=== PATIENT | male | born 1950 | race Caucasian/White ===

== ENCOUNTER 2019-04-21 13:10 | Inpatient (IN) | payer MEDICARE, BC ==
[~2019-04-21] VITALS: Ht 170.2 cm; Wt 73.7 kg
[2019-04-21 14:18] LABS: Source, Urine Voided
[2019-04-21 14:31] LABS: BASOPHILS ABSOLUTE AUTO 0.07 K/mm3 (0.00-0.23); BASOPHILS PERCENT AUTO 1 % (0-2); EOSINOPHILS ABSOLUTE AUTO 0.07 K/mm3 (0.00-0.68); EOSINOPHILS PERCENT AUTO 1 % (0-6); Hematocrit 40.9 % (37.0-53.0); Hemoglobin 15.2 g/dL (13.5-17.5); IMMATURE GRAN ABSOLUTE AUTO 0.08 K/mm3 (0.00-0.10); IMMATURE GRAN PERCENT AUTO 1 % (0-1); LYMPHOCYTES PERCENT AUTO 21 % (21-46); MONOCYTES ABSOLUTE AUTO 1.38 K/mm3 (0.16-1.47); MONOCYTES PERCENT AUTO 11 % (4-13); Mean Corpuscular HGB 35.6 pg (26.0-34.0); Mean Corpuscular HGB Conc 37.2 g/dL (31.5-36.5); Mean Corpuscular Volume 96 fL (80-100); Mean Platelet Volume 9.1 fL (9.1-12.4); NEUTROPHILS ABSOLUTE AUTO 8.69 K/mm3 (1.96-9.15); NEUTROPHILS PERCENT AUTO 67 % (41-73); Platelet Count 284 K/mm3 (150-400); RDW Coefficient Variation 12.4 % (11.7-14.2); RDW Standard Deviation 43.7 fL (35.1-46.3); Red Blood Cell Count 4.27 M/mm3 (4.30-5.90); White Blood Cell Count 13.09 K/mm3 (4.00-11.30)
[2019-04-21 14:49] LABS: Alanine Aminotransfer (ALT/SGP 63 U/L (12-78); Albumin, Blood 4.1 g/dL (3.4-5.0); Albumin/Globulin Ratio 1.2 (0.8-1.8); Alk Phos 48 U/L (50-136); Anion Gap 9 mmol/L (6-16); Aspartate Aminotrans (AST/SGOT 197 U/L (12-37); Bilirubin, Total 1.2 mg/dL (0.1-1.0); Blood Urea Nitrogen 13 mg/dL (8-24); Bun/Creatinine Ratio 13.8 (12.0-20.0); CO2, Blood 27 mmol/L (21-32); Calcium, Blood 8.7 mg/dL (8.5-10.1); Chloride, Blood 85 mmol/L (98-108); Creatinine, Blood 0.95 mg/dL (0.60-1.20); Globulin, Blood 3.3 g/dL (2.2-4.0); Glomerular Filtration Rate >60 (60-); Glucose, Blood 84 mg/dL (70-99); Potassium, Blood 3.4 mmol/L (3.5-5.5); Sodium, Blood 121 mmol/L (136-145); Total Protein, Blood 7.4 g/dL (6.4-8.2)
[2019-04-21 15:02] LABS: Appearance, Urine Clear (Clear); Bilirubin, Urine Neg (Neg); Blood, Urine 1+ (Neg); Color, Urine Yellow (P-Yellow); Glucose Qualitative, Urine Neg (Neg); Ketones, Urine 1+ (Neg); Leukocyte Esterase, Urine Neg (Neg); Nitrite, Urine Neg (Neg); Protein, Urine 2+ (Neg); Urobilinogen, Urine 1+ (Normal)
[2019-04-21] MEDS ORDERED: Vitamin B-Comp1 EAC7 PO (15:50)
[2019-04-21 15:54] LABS: Bacteria Few /hpf; Squamous Epithelial Cells Few /hpf (Few)
--- NOTE | 2019-04-21 19:24 | NUR ---
new admit patient settled into room. denies pain, nausea, and shortness of breath. patient eating dinner. call light in reach.
[2019-04-21 22:16] LABS: Albumin, Blood 3.6 g/dL (3.4-5.0); Anion Gap 8 mmol/L (6-16); Blood Urea Nitrogen 15 mg/dL (8-24); Bun/Creatinine Ratio 15.5 (12.0-20.0); CO2, Blood 25 mmol/L (21-32); Calcium, Blood 8.5 mg/dL (8.5-10.1); Chloride, Blood 89 mmol/L (98-108); Creatinine, Blood 0.97 mg/dL (0.60-1.20); Glomerular Filtration Rate >60 (60-); Glucose, Blood 93 mg/dL (70-99); Phosphorus, Blood 2.6 mg/dL (2.5-4.9); Potassium, Blood 3.5 mmol/L (3.5-5.5); Sodium, Blood 122 mmol/L (136-145)
--- NOTE | 2019-04-22 04:32 | NUR ---
PT IS RETAINING URINE. PT REQUIRES COUDET FOR CATH. PT HAD 500 ML INTO URINAL AND UNKNOW AMOUNT LEAKED. PT ABD WAS DISTENDED PRIOR TO CATH AND NOW IS SOFT NONTENDER.
[2019-04-22 05:01] LABS: BASOPHILS ABSOLUTE AUTO 0.06 K/mm3 (0.00-0.23); BASOPHILS PERCENT AUTO 1 % (0-2); EOSINOPHILS ABSOLUTE AUTO 0.09 K/mm3 (0.00-0.68); EOSINOPHILS PERCENT AUTO 1 % (0-6); Hemoglobin 15.4 g/dL (13.5-17.5); IMMATURE GRAN ABSOLUTE AUTO 0.06 K/mm3 (0.00-0.10); IMMATURE GRAN PERCENT AUTO 1 % (0-1); LYMPHOCYTES ABSOLUTE AUTO 2.26 K/mm3 (0.84-5.20); LYMPHOCYTES PERCENT AUTO 22 % (21-46); MONOCYTES ABSOLUTE AUTO 1.24 K/mm3 (0.16-1.47); MONOCYTES PERCENT AUTO 12 % (4-13); Mean Corpuscular HGB 35.6 pg (26.0-34.0); Mean Platelet Volume 9.6 fL (9.1-12.4); NEUTROPHILS ABSOLUTE AUTO 6.45 K/mm3 (1.96-9.15); NEUTROPHILS PERCENT AUTO 64 % (41-73); Platelet Count 207 K/mm3 (150-400); RDW Coefficient Variation 12.1 % (11.7-14.2); RDW Standard Deviation 42.5 fL (35.1-46.3); Red Blood Cell Count 4.32 M/mm3 (4.30-5.90); White Blood Cell Count 10.16 K/mm3 (4.00-11.30)
--- NOTE | 2019-04-22 05:10 | NUR ---
SHIFT SUMMARY PT HAD GOOD NIGHT. PT RETAINING URINE WITH ABD DISCOMFORT. PT STRIGHT CATH AND DISCOMFORT RELIEVED. PT CONFUSION HAS IMPROVED SOME. PT DID HAVE SHORT PERIOD OF HALLUCINATIONS. PT THOUGHT A STRANGER CAME INTO HIS ROOM. PT IS CURRENTLY AWAKE WATCHING TV. PT WOULD BENEFIT FROM NYSTATIN POWDER TO [place] [facility]. WILL PASS ON TO DAY RN. PT IS UNSTEADY ON FEET AND BED ALARM IS ON AND CALL LIGHT IN REACH.
[2019-04-22 05:16] LABS: Mean Corpuscular HGB Conc 35.8 g/dL (31.5-36.5); Mean Corpuscular Volume 100 fL (80-100)
[2019-04-22 05:25] LABS: Albumin, Blood 3.6 g/dL (3.4-5.0); Anion Gap 11 mmol/L (6-16); Blood Urea Nitrogen 13 mg/dL (8-24); CO2, Blood 22 mmol/L (21-32); Calcium, Blood 8.2 mg/dL (8.5-10.1); Chloride, Blood 90 mmol/L (98-108); Creatinine, Blood 0.87 mg/dL (0.60-1.20); Glomerular Filtration Rate >60 (60-); Glucose, Blood 79 mg/dL (70-99); Phosphorus, Blood 2.7 mg/dL (2.5-4.9); Sodium, Blood 123 mmol/L (136-145)
--- NOTE | 2019-04-22 06:03 | NUR ---
nurses straight cathed pt at approxiately 3am to 3:30am. Bladder scan showed 582ML of urine. I charted output because it hadnt been put in by anyone else. However, i didnt witness the cathing.
[2019-04-22 12:57] LABS: Anion Gap 9 mmol/L (6-16); Blood Urea Nitrogen 13 mg/dL (8-24); Bun/Creatinine Ratio 15.1 (12.0-20.0); CO2, Blood 24 mmol/L (21-32); Calcium, Blood 8.3 mg/dL (8.5-10.1); Chloride, Blood 92 mmol/L (98-108); Creatinine, Blood 0.86 mg/dL (0.60-1.20); Glomerular Filtration Rate >60 (60-); Glucose, Blood 75 mg/dL (70-99); Osmolality, Serum 255 mos/KG (275-300); Potassium, Blood 3.5 mmol/L (3.5-5.5); Sodium, Blood 125 mmol/L (136-145)
[2019-04-22 13:22] LABS: CPK Creatine Kinase 2291 U/L (39-308)
--- NOTE | 2019-04-22 15:51 | NUR ---
STRAIGHT CATH THIS RN STRAIGHT CATHED PT WITH 14 COUDET. DRAINED 525 ML FROM BLADDER. PT DID START TO VOID WHILE CATHETER IN PLACE, CAUSING TO LOSE SOME URINE ON BED SO UNABLE TO MEASURE ALL URINE OUTPUT. PT HAD TRIED FOR SEVERAL MINUTES TO VOID ON OWN BEFORE DOING STRAIGHT CATH. PT TOLERATED WELL. NO REQUESTS AT THIS TIME. CALL LIGHT IN REACH AND BED ALARM ON FOR SAFETY.
--- NOTE | 2019-04-22 17:56 | NUR ---
SHIFT SUMMARY PT CONFUSED BUT COOPERATIVE WITH CARE THIS SHIFT. NO COMPLAINTS OF PAIN. PT HAS HAD RETENTION ON AND OFF THIS THIS SHIFT. PT VOIDED THIS AM BUT WAS UNABLE TO VOID THIS AFTERNOON. THIS RN STRAIGHT CATHED PT AND 525 ML REMOVED FROM BLADDER. NO ACUTE CHANGES THIS SHIFT. CALL LIGHT IN REACH AND BED ALARM ON FOR SAFETY.
[2019-04-23 04:35] LABS: BASOPHILS ABSOLUTE AUTO 0.05 K/mm3 (0.00-0.23); BASOPHILS PERCENT AUTO 0 % (0-2); EOSINOPHILS ABSOLUTE AUTO 0.06 K/mm3 (0.00-0.68); EOSINOPHILS PERCENT AUTO 1 % (0-6); Hematocrit 41.2 % (37.0-53.0); Hemoglobin 15.4 g/dL (13.5-17.5); IMMATURE GRAN ABSOLUTE AUTO 0.04 K/mm3 (0.00-0.10); IMMATURE GRAN PERCENT AUTO 0 % (0-1); LYMPHOCYTES ABSOLUTE AUTO 2.47 K/mm3 (0.84-5.20); LYMPHOCYTES PERCENT AUTO 21 % (21-46); MONOCYTES ABSOLUTE AUTO 1.35 K/mm3 (0.16-1.47); MONOCYTES PERCENT AUTO 11 % (4-13); Mean Corpuscular HGB Conc 37.4 g/dL (31.5-36.5); Mean Platelet Volume 8.9 fL (9.1-12.4); NEUTROPHILS ABSOLUTE AUTO 7.89 K/mm3 (1.96-9.15); NEUTROPHILS PERCENT AUTO 67 % (41-73); Platelet Count 304 K/mm3 (150-400); RDW Coefficient Variation 12.2 % (11.7-14.2); RDW Standard Deviation 42.6 fL (35.1-46.3); White Blood Cell Count 11.86 K/mm3 (4.00-11.30)
[2019-04-23 04:37] LABS: Mean Corpuscular Volume 94 fL (80-100)
[2019-04-23 04:57] LABS: Albumin, Blood 3.7 g/dL (3.4-5.0); Anion Gap 9 mmol/L (6-16); Blood Urea Nitrogen 8 mg/dL (8-24); Bun/Creatinine Ratio 10.2 (12.0-20.0); CO2, Blood 23 mmol/L (21-32); Calcium, Blood 8.2 mg/dL (8.5-10.1); Chloride, Blood 93 mmol/L (98-108); Creatinine, Blood 0.78 mg/dL (0.60-1.20); Glomerular Filtration Rate >60 (60-); Glucose, Blood 101 mg/dL (70-99); Potassium, Blood 3.2 mmol/L (3.5-5.5); Sodium, Blood 125 mmol/L (136-145)
[2019-04-23 05:06] LABS: CPK Creatine Kinase 2328 U/L (39-308)
--- NOTE | 2019-04-23 05:11 | NUR ---
SHIFT SUMMARY: PATIENT CONFUSED UP UNTIL APPROX 0400 THIS SHIFT. PATIENT NOW ALERT AND ORIENTED WITH MILD FORGETFULLNESS, CIWA WAS UP TO AN 11 AT APPROX 0000 BUT HARD TO TELL WITH PATIENTS UNDERLYING CONFUSION. HYDRALAZINE GIVEN X1 FOR SBP OF 160, ALL OTHER VSS, PATIENT MONITORED CLOSELY, URINATING WELL, CALL LIGHT WITHIN REACH, BED LOW AND LOCKED WITH EXIT ALARM ON.
[2019-04-23 13:10] LABS: Albumin, Blood 3.7 g/dL (3.4-5.0); Anion Gap 8 mmol/L (6-16); Blood Urea Nitrogen 7 mg/dL (8-24); Bun/Creatinine Ratio 9.2 (12.0-20.0); CO2, Blood 25 mmol/L (21-32); Calcium, Blood 8.2 mg/dL (8.5-10.1); Chloride, Blood 92 mmol/L (98-108); Creatinine, Blood 0.76 mg/dL (0.60-1.20); Glomerular Filtration Rate >60 (60-); Glucose, Blood 142 mg/dL (70-99); Phosphorus, Blood 1.8 mg/dL (2.5-4.9); Potassium, Blood 3.1 mmol/L (3.5-5.5); Sodium, Blood 125 mmol/L (136-145)
--- NOTE | 2019-04-23 13:38 | NUR ---
IV TO LEFT AC AND RIGHT AC IN PLACE WHEN RN CAME ON TO SHIFT. NO DOCUMENTATION OF IV IN CHART. RN DOCUMENTED IV PLACEMENT, WITH AN ESTIMATE OF DATE AND TIME. RN DID NOT PLACE THIS IV.
[2019-04-23 16:17] LABS: Albumin, Blood 3.8 g/dL (3.4-5.0); Anion Gap 9 mmol/L (6-16); Blood Urea Nitrogen 8 mg/dL (8-24); Bun/Creatinine Ratio 9.8 (12.0-20.0); CO2, Blood 24 mmol/L (21-32); Calcium, Blood 8.7 mg/dL (8.5-10.1); Chloride, Blood 92 mmol/L (98-108); Creatinine, Blood 0.82 mg/dL (0.60-1.20); Glomerular Filtration Rate >60 (60-); Glucose, Blood 82 mg/dL (70-99); Magnesium, Blood 1.8 mg/dL (1.6-2.4); Phosphorus, Blood 2.1 mg/dL (2.5-4.9); Potassium, Blood 3.3 mmol/L (3.5-5.5); Sodium, Blood 125 mmol/L (136-145); Uric Acid, Blood 3.8 mg/dL (3.5-7.2)
--- NOTE | 2019-04-24 04:47 | NUR ---
SPOKE TO DR JORGENSEN REGARDING PATIENT PULLING HIS LINES AN TRYING TO GET UP TO LEAVE. RECEIVED ORDERS PER EMAR.
[2019-04-24 05:05] LABS: BASOPHILS ABSOLUTE AUTO 0.03 K/mm3 (0.00-0.23); BASOPHILS PERCENT AUTO 0 % (0-2); EOSINOPHILS ABSOLUTE AUTO 0.09 K/mm3 (0.00-0.68); EOSINOPHILS PERCENT AUTO 1 % (0-6); Hemoglobin 14.1 g/dL (13.5-17.5); IMMATURE GRAN ABSOLUTE AUTO 0.03 K/mm3 (0.00-0.10); IMMATURE GRAN PERCENT AUTO 0 % (0-1); LYMPHOCYTES ABSOLUTE AUTO 2.42 K/mm3 (0.84-5.20); LYMPHOCYTES PERCENT AUTO 23 % (21-46); MONOCYTES ABSOLUTE AUTO 1.11 K/mm3 (0.16-1.47); MONOCYTES PERCENT AUTO 11 % (4-13); Mean Corpuscular HGB 34.7 pg (26.0-34.0); Mean Corpuscular HGB Conc 36.2 g/dL (31.5-36.5); Mean Corpuscular Volume 96 fL (80-100); Mean Platelet Volume 9.2 fL (9.1-12.4); NEUTROPHILS ABSOLUTE AUTO 6.88 K/mm3 (1.96-9.15); NEUTROPHILS PERCENT AUTO 65 % (41-73); Platelet Count 321 K/mm3 (150-400); RDW Coefficient Variation 12.2 % (11.7-14.2); RDW Standard Deviation 43.5 fL (35.1-46.3); Red Blood Cell Count 4.06 M/mm3 (4.30-5.90); White Blood Cell Count 10.56 K/mm3 (4.00-11.30)
[2019-04-24 06:05] LABS: Albumin, Blood 3.6 g/dL (3.4-5.0); Anion Gap 10 mmol/L (6-16); Blood Urea Nitrogen 8 mg/dL (8-24); Bun/Creatinine Ratio 9.7 (12.0-20.0); CO2, Blood 23 mmol/L (21-32); Calcium, Blood 8.1 mg/dL (8.5-10.1); Chloride, Blood 94 mmol/L (98-108); Creatinine, Blood 0.83 mg/dL (0.60-1.20); Glomerular Filtration Rate >60 (60-); Glucose, Blood 92 mg/dL (70-99); Magnesium, Blood 1.5 mg/dL (1.6-2.4); Phosphorus, Blood 2.1 mg/dL (2.5-4.9); Potassium, Blood 3.5 mmol/L (3.5-5.5); Sodium, Blood 127 mmol/L (136-145)
[2019-04-24 06:21] LABS: CPK Creatine Kinase 2747 U/L (39-308)
[2019-04-24 10:54] LABS: Triiodothyronine, Free <0.50 pg/mL (2.18-3.98)
--- NOTE | 2019-04-24 17:47 | NUR ---
SHIFT SUMMARY PT A&Ox1, CONFUSED AT TIMES, SLOW TO RESPOND. PT UNABLE TO TELL THE DATE, STATES ITS 2008, PT STATES HE DOESNT REMEMBER WHY HE IS HERE. PT RESTING IN BED DURING SHIFT. UP IN CHAIR WITH 2 PERSON ASSIST FOR DINNER. PT WALKED IN HALLS WITH PT THIS AM. PT DENIES PAIN, SOB AND N/V. PT REFUSING MEALS. IV FLUIDS NS AT 100ML/HR. PT RECEIVING IV MAG SULFATE AND SODIUM PHOS IV; PT RECEIVING PO LASIX AND SODIUM CHLORIDE AND STARTED ON SYNTHROIDS DURING SHIFT. CIWA 3-7, WILL CONTINUE TO MONITOR. AT START OF SHIFT PT IN DEEPTHI AND BILATERAL WRIST RESTARINTS; DISCUSSED RESTRAINTS WITH DR CULVER THIS AFTERNOON, NOW ONLY IN BILATERAL WRISTS. PT REPOSITIONED FOR COMFORT. VSS. NO OTHER ACUTE CHANGES NOTED DURING SHIFT. WILL CONTINUE TO MONITOR UNTIL REPORT GIVEN TO ONCOMING RN.
--- NOTE | 2019-04-24 18:12 | NUR ---
PATIENT'S DAUGHTER AND SON MENTIONED THAT THE PATIENT HAD STOPPED TAKE HIS HOME MEDICATIONS "A MONTH OR SO AGO". CALLED [facility], THE LAST PRESCRIPTION FILLED WAS IN MARCH/2018 AND HIS PREVIOUS PRESCRIPTIONS INCLUDED; SYNTHROID 112MCG PO DAILY ATORVASTATIN 10MG PO DAILY AMLODIPINE 5 MG PO DAILY ATENOLOL 25 MG PO
[2019-04-25 05:42] LABS: BASOPHILS ABSOLUTE AUTO 0.06 K/mm3 (0.00-0.23); BASOPHILS PERCENT AUTO 1 % (0-2); EOSINOPHILS ABSOLUTE AUTO 0.15 K/mm3 (0.00-0.68); EOSINOPHILS PERCENT AUTO 1 % (0-6); Hematocrit 35.6 % (37.0-53.0); Hemoglobin 12.7 g/dL (13.5-17.5); IMMATURE GRAN ABSOLUTE AUTO 0.03 K/mm3 (0.00-0.10); IMMATURE GRAN PERCENT AUTO 0 % (0-1); LYMPHOCYTES ABSOLUTE AUTO 2.68 K/mm3 (0.84-5.20); LYMPHOCYTES PERCENT AUTO 24 % (21-46); MONOCYTES ABSOLUTE AUTO 0.91 K/mm3 (0.16-1.47); MONOCYTES PERCENT AUTO 8 % (4-13); Mean Corpuscular HGB Conc 35.7 g/dL (31.5-36.5); Mean Corpuscular Volume 98 fL (80-100); Mean Platelet Volume 9.3 fL (9.1-12.4); NEUTROPHILS ABSOLUTE AUTO 7.59 K/mm3 (1.96-9.15); NEUTROPHILS PERCENT AUTO 66 % (41-73); Platelet Count 297 K/mm3 (150-400); RDW Coefficient Variation 12.4 % (11.7-14.2); RDW Standard Deviation 45.1 fL (35.1-46.3); Red Blood Cell Count 3.63 M/mm3 (4.30-5.90); White Blood Cell Count 11.42 K/mm3 (4.00-11.30)
[2019-04-25 06:11] LABS: Magnesium, Blood 1.8 mg/dL (1.6-2.4)
[2019-04-25 06:13] LABS: Albumin, Blood 3.2 g/dL (3.4-5.0); Anion Gap 9 mmol/L (6-16); Blood Urea Nitrogen 10 mg/dL (8-24); Bun/Creatinine Ratio 10.8 (12.0-20.0); CO2, Blood 25 mmol/L (21-32); Calcium, Blood 7.8 mg/dL (8.5-10.1); Chloride, Blood 93 mmol/L (98-108); Creatinine, Blood 0.93 mg/dL (0.60-1.20); Glomerular Filtration Rate >60 (60-); Glucose, Blood 77 mg/dL (70-99); Phosphorus, Blood 2.8 mg/dL (2.5-4.9); Potassium, Blood 3.1 mmol/L (3.5-5.5); Sodium, Blood 127 mmol/L (136-145)
--- NOTE | 2019-04-25 07:30 | NUR ---
SHIFT SUMMARY: PATIENT WAS VERY CONFUSED THIS SHIFT, HIS SPEECH GARBLED AND NONSENICAL; HE WAS HALLUCINATING. CIWA SCORE WAS 14 AND PATIENT RECEIVED 2 MG OF ATIVAN. HE QUIETED, AND RESTED PEACEFULLY AFTER THIS. SPOKE TO DR CARBAJAL THIS AM AND RECEIVED NEW ORDERS PER EMAR. PATIENT REMAINS IN SOFT-WRIST RESTRAINTS. PASSED REPORT TO DAY NURSE LONG.
[2019-04-25 13:34] LABS: Potassium, Blood 3.5 mmol/L (3.5-5.5)
--- NOTE | 2019-04-25 17:39 | NUR ---
SHIFT SUMMARY PT A&O TO SELF AND FAMILY, UNABLE TO STATE DATE/TIME, STATES HE IS AT HOME AND DOSE NOT KNOW WHY HE IS HERE. PT IS CONFUSED. PT REPORTS THAT OTHER "MEN" ARE IN THE ROOM. PT UP IN RECLINER FOR MAJORITY OF SHIFT, 2 PERSON MAX ASSIST TRANSFER TO BED. PT DENIES PAIN, SOB AND N/V DURING SHIFT. PT FAMILY STATES HE IS NOT A 'BIG EATER" ENCOURAGING PO INTAKE. PT RECEIVED IV POTASSIUM AND PO POTASSIUM AND INCREASED SODIUM CLHORIDE. PT RECEIVED PO LASIX AND ALDACTONE. CIWA 7-9 T/O SHIFT, MEDICATED PER EMAR. BILATERL SOFT WRIST CUFFS IN PLACE. VSS. NO OTHER ACUTE CHANGES NOTED DURING SHIFT. WILL CONTINUE TO MONITOR UNTIL REPORT GIVEN TO ONCOMING RN.
[2019-04-26 04:52] LABS: BASOPHILS ABSOLUTE AUTO 0.06 K/mm3 (0.00-0.23); BASOPHILS PERCENT AUTO 1 % (0-2); EOSINOPHILS ABSOLUTE AUTO 0.11 K/mm3 (0.00-0.68); EOSINOPHILS PERCENT AUTO 1 % (0-6); Hematocrit 36.6 % (37.0-53.0); IMMATURE GRAN ABSOLUTE AUTO 0.03 K/mm3 (0.00-0.10); IMMATURE GRAN PERCENT AUTO 0 % (0-1); LYMPHOCYTES ABSOLUTE AUTO 2.75 K/mm3 (0.84-5.20); LYMPHOCYTES PERCENT AUTO 29 % (21-46); MONOCYTES ABSOLUTE AUTO 0.82 K/mm3 (0.16-1.47); MONOCYTES PERCENT AUTO 9 % (4-13); Mean Corpuscular HGB Conc 35.5 g/dL (31.5-36.5); Mean Corpuscular Volume 99 fL (80-100); Mean Platelet Volume 8.9 fL (9.1-12.4); NEUTROPHILS PERCENT AUTO 60 % (41-73); Platelet Count 341 K/mm3 (150-400); RDW Coefficient Variation 12.4 % (11.7-14.2); RDW Standard Deviation 45.2 fL (35.1-46.3); Red Blood Cell Count 3.71 M/mm3 (4.30-5.90); White Blood Cell Count 9.37 K/mm3 (4.00-11.30)
[2019-04-26 05:11] LABS: Albumin, Blood 3.5 g/dL (3.4-5.0); Anion Gap 9 mmol/L (6-16); Blood Urea Nitrogen 8 mg/dL (8-24); Bun/Creatinine Ratio 9.3 (12.0-20.0); CO2, Blood 25 mmol/L (21-32); Chloride, Blood 94 mmol/L (98-108); Creatinine, Blood 0.86 mg/dL (0.60-1.20); Glomerular Filtration Rate >60 (60-); Glucose, Blood 85 mg/dL (70-99); Phosphorus, Blood 2.3 mg/dL (2.5-4.9); Potassium, Blood 3.2 mmol/L (3.5-5.5); Sodium, Blood 128 mmol/L (136-145)
[2019-04-26 05:19] LABS: CPK Creatine Kinase 1843 U/L (39-308)
--- NOTE | 2019-04-26 17:01 | NUR ---
SNF - REHAB SPOKE WITH PT DAUGHTER, RADHA, VIA TELEPHONE, THE PT AND FAMILY HAVE DECIDED TO HAVE TO PATIENT DISCHARGED TO SNF FOR SHORT STAY REHAB, LONG THE FACILITY IS LOCAL WITH A PREFERENCE OF [facility]. DR CULVER NOTIFIED.
--- NOTE | 2019-04-26 17:24 | NUR ---
SHIFT SUMMARY PT A&O TO SELF AND FAMILY. PT STATES HE DOESNT KNOW THE DATE OR WHY HE IS HERE AND STATES HE IS AT HOME IN [place]. PT CONFUSED, AGGITATED AND REPORTS FEELING ANXIOUS THIS AFTERNOON. PT DENIES HALLUCINATIONS. CIWA MAX AT 9 THIS AFTERNOON. PT DENIES PAIN, SOB AND N/V DURING SHIFT. FAMILY BROUGHT IN FOOD TO ENCOURAGE ORAL INTAKE, PT TOOK A COUPLE BITES BUT CONTINUE TO HAVE A POOR APPETEITE. PT RECEIVING IV POTASSIUM PHOS AND POTASSIUM CHLORIDE. PT RECEIVING PO SODIUM CHLORIDE. PT HAD DARK BROWN/BLACK STOOL, DR CULVER NOTIFIED, ANGELITO SPECIMEN COLLECTED AND SENT FOR GUAIAC, PENDING RESULTS. ELEVATED BP NOTED, NO OTHER ACUTE CHANGES NOTED DURING SHIFT. WILL CONTINUE TO MONITOR UNITL REPORT GIVEN TO ONCOMING RN. PER PT DAUGHTER, PT AND FAMILY HAVE DECIDED TO DISCHARGE TO SNF, PREFERABLY [facility], ONCE STABLE.
[2019-04-27 04:44] LABS: BASOPHILS ABSOLUTE AUTO 0.05 K/mm3 (0.00-0.23); BASOPHILS PERCENT AUTO 1 % (0-2); EOSINOPHILS ABSOLUTE AUTO 0.18 K/mm3 (0.00-0.68); EOSINOPHILS PERCENT AUTO 2 % (0-6); Hematocrit 35.1 % (37.0-53.0); Hemoglobin 12.6 g/dL (13.5-17.5); IMMATURE GRAN ABSOLUTE AUTO 0.03 K/mm3 (0.00-0.10); IMMATURE GRAN PERCENT AUTO 0 % (0-1); LYMPHOCYTES ABSOLUTE AUTO 3.01 K/mm3 (0.84-5.20); LYMPHOCYTES PERCENT AUTO 31 % (21-46); MONOCYTES ABSOLUTE AUTO 0.77 K/mm3 (0.16-1.47); MONOCYTES PERCENT AUTO 8 % (4-13); Mean Corpuscular HGB 35.5 pg (26.0-34.0); Mean Corpuscular HGB Conc 35.9 g/dL (31.5-36.5); Mean Corpuscular Volume 99 fL (80-100); Mean Platelet Volume 8.9 fL (9.1-12.4); NEUTROPHILS ABSOLUTE AUTO 5.71 K/mm3 (1.96-9.15); NEUTROPHILS PERCENT AUTO 59 % (41-73); Platelet Count 340 K/mm3 (150-400); RDW Coefficient Variation 12.6 % (11.7-14.2); RDW Standard Deviation 45.7 fL (35.1-46.3); Red Blood Cell Count 3.55 M/mm3 (4.30-5.90); White Blood Cell Count 9.75 K/mm3 (4.00-11.30)
[2019-04-27 05:18] LABS: Albumin, Blood 3.6 g/dL (3.4-5.0); Anion Gap 8 mmol/L (6-16); Blood Urea Nitrogen 7 mg/dL (8-24); Bun/Creatinine Ratio 8.1 (12.0-20.0); CO2, Blood 26 mmol/L (21-32); Calcium, Blood 8.3 mg/dL (8.5-10.1); Chloride, Blood 92 mmol/L (98-108); Creatinine, Blood 0.86 mg/dL (0.60-1.20); Glomerular Filtration Rate >60 (60-); Glucose, Blood 82 mg/dL (70-99); Magnesium, Blood 1.6 mg/dL (1.6-2.4); Phosphorus, Blood 3.1 mg/dL (2.5-4.9); Potassium, Blood 3.4 mmol/L (3.5-5.5); Sodium, Blood 126 mmol/L (136-145)
[2019-04-27 13:54] LABS: Stool Occult Blood Guaiac 1 Pos (Neg)
--- NOTE | 2019-04-27 17:53 | NUR ---
PATIENT IS ALERT AND ORIENTED TO SELF AND HIS FAMILY. THIS MORNINGTHE PATIENT APPEARED MORE CONFUSED THAN USUAL TO STAFF. ONCE THE PATIENT'S FAMILY WAS AT THE BEDSIDE, IT WAS CLEAR THAT HE IS ORIENTED TO THEM. A BLADDER SCAN WAS OBTAINED THIS MORNING WHICH SHOWED OVER 900 ML OF URINE. THE PATIENT WAS FINALLY ABLE TO RELIEVE HIMSELF USING THE URINAL. THE PATIET'S SON ASSISTED WITH FEEDING HIM LUNCH. NO COMPLAINTS OF PAIN. WRIST RESTRAINTS HAVE BEEN REMOVED. PATIENT IS TOLERATING RESTRAINTS WELL AND IS NOT PULLING AT THE POWERGLIDE. WILL CONTINUE TO MONITOR.
--- NOTE | 2019-04-27 17:57 | NUR ---
PATIENT IS ALERT AD ORIENTED AND COOPERATIVE WITH CARE. PATIENT IS SOB AT REST. HE HAS SPENT ALOT OF HIS DAY TRIPODING IN BED. HIS OXYGEN SATURATIONS HAVE BEEN 94-95%. BREATHING TREATMENTS SCHEDULED. 2L O2 VIA NC. PATIENT HAS SLEPT PERIODICALLY THROUGHOUT THE DAY. WILL CONTINUE TO MONITOR.
--- NOTE | 2019-04-28 04:29 | NUR ---
NOC SHIFT SUMMARY PT IS PLEASANT AND COOPERATIVE WITH CARE THIS NIGHT. SON WAS IN THE ROOM BUT LEFT IN THE EVENING. HE WAS HELPED TO TRANSFER FROM THE CHAIR TO THE BED WHERE HE HAS SLEPT MOST OF NIGHT. HE IS A BIT CONFUSED AND NEEDS THINGS EXPLAINED SLOWELY TO HIM. CURRENTLY SLEEPING AND APPEARS IN NO ACUTE DISTRESS. WILL CONTINUE TO MONITOR.
[2019-04-28 04:47] LABS: Hematocrit 33.3 % (37.0-53.0); Hemoglobin 11.9 g/dL (13.5-17.5)
[2019-04-28 05:09] LABS: Albumin, Blood 3.6 g/dL (3.4-5.0); Anion Gap 6 mmol/L (6-16); Blood Urea Nitrogen 9 mg/dL (8-24); Bun/Creatinine Ratio 8.7 (12.0-20.0); CO2, Blood 28 mmol/L (21-32); Calcium, Blood 8.9 mg/dL (8.5-10.1); Chloride, Blood 92 mmol/L (98-108); Creatinine, Blood 1.03 mg/dL (0.60-1.20); Glomerular Filtration Rate >60 (60-); Glucose, Blood 77 mg/dL (70-99); Magnesium, Blood 1.8 mg/dL (1.6-2.4); Phosphorus, Blood 3.8 mg/dL (2.5-4.9); Potassium, Blood 3.6 mmol/L (3.5-5.5); Sodium, Blood 126 mmol/L (136-145)
[2019-04-28] MEDS ORDERED: FOLI1 PO (14:49)
[2019-04-28] MEDS ORDERED: FURO40 PO (14:49)
[2019-04-28] MEDS ORDERED: LEVSOD100 PO (14:50)
[2019-04-28] MEDS ORDERED: Nicoderm Cq1 EAC1 TOP (14:51)
[2019-04-28] MEDS ORDERED: POTCHL20ER PO (14:52)
[2019-04-28] MEDS ORDERED: SODCHL1 PO (14:52)
[2019-04-28] MEDS ORDERED: SPIR25 PO (14:53)
[2019-04-28] MEDS ORDERED: B-1100 MG PO (14:53)
--- NOTE | 2019-04-28 16:57 | NUR ---
PATIENT DISCHARGED HOME WITH HOME HEALTH. FAMILY AT THE BEDTIME AT THE TIME OF DISCHARGE. FAMILY TRANSPORTED PATIENT HOME.
--- NOTE | 2019-06-23 23:11 | NUR ---
LATE ENTRY: PER NOTE ON 04/24/19 REASON FOR WRIST RESTRAINT WAS FOLLOWS: BEHAVIOR REQUIRING WRIST RESTRAINTS: PATIENT PULLING HIS TUBES AND TRYING TO GET UP OOB AND BEING A HIGH FALL RISK PATIENT. TYPE OF RESTRAINT (NV)/ VEST AND SOFT WRISTS RESTRAINTS ALTERNATIVES TO RESTRAINTS CONSIDERED: EDUCATION, DISTRACTION, GIVING OF TASKS, REMINDING/PROMPTING PT TO STAY IN BED. SPOKE TO DR JORGENSEN PER PREVIIOUS NOTE PER EMAR.
== END 2019-04-28 16:52 | disposition home health service (06) | DRG 643 ==
LOC: ER 13:10 → MEDS 16:02
PROVIDERS: Emergency Medicine; Internal Medicine Nephrology; ADMIT Family Medicine
DX: E22.2 Syndrome of inappropriate secretion of antidiuretic hormone (principal); G92 Toxic encephalopathy; M62.82 Rhabdomyolysis; F10.239 Alcohol dependence with withdrawal, unspecified; F10.27 Alcohol dependence with alcohol-induced persisting dementia; N17.9 Acute kidney failure, unspecified; E03.9 Hypothyroidism, unspecified; F17.210 Nicotine dependence, cigarettes, uncomplicated; E87.6 Hypokalemia; E86.1 Hypovolemia; D72.829 Elevated white blood cell count, unspecified; E83.39 Other disorders of phosphorus metabolism; N18.2 Chronic kidney disease, stage 2 (mild); E83.51 Hypocalcemia; E88.09 Other disorders of plasma-protein metabolism, not elsewhere classified; D63.1 Anemia in chronic kidney disease; I12.9 Hypertensive chronic kidney disease with stage 1 through stage 4 chronic kidney disease, or unspecified chronic kidney disease
CPT/HCPCS: 36415; 51701; 71046; 80048; 80053; 80069; 81001; 82270; 82533; 82550; 83735; 83930; 84132; 84295; 84300; 84439; 84443; 84481; 84550; 85014; 85018; 85025; 93005; 93010; 93970; 97110; 97116; 97161; 97166; 97530; 97535; 99285-25; C1751; G0480; J0360; J1650; J1940; J2060; J3475; J3480; J7030; J7060

== ENCOUNTER 2019-05-03 18:09 | Inpatient (IN) | payer OTHER, MEDICARE, BC ==
[~2019-05-03] VITALS: Ht 175.3 cm; Wt 66.7 kg
[~2019-05-03 18:09] MED LIST: B-1100 MG PO; FOLI1 PO; FURO40 PO; LEVSOD100 PO; Nicoderm Cq1 EAC1 TOP; POTCHL20ER PO; SODCHL1 PO; SPIR25 PO; Vitamin B-Comp1 EAC7 PO
[2019-05-03 19:00] LABS: BASOPHILS ABSOLUTE AUTO 0.04 K/mm3 (0.00-0.23); BASOPHILS PERCENT AUTO 0 % (0-2); EOSINOPHILS ABSOLUTE AUTO 0.11 K/mm3 (0.00-0.68); EOSINOPHILS PERCENT AUTO 1 % (0-6); Hematocrit 33.7 % (37.0-53.0); Hemoglobin 12.3 g/dL (13.5-17.5); IMMATURE GRAN ABSOLUTE AUTO 0.04 K/mm3 (0.00-0.10); IMMATURE GRAN PERCENT AUTO 0 % (0-1); LYMPHOCYTES ABSOLUTE AUTO 2.28 K/mm3 (0.84-5.20); LYMPHOCYTES PERCENT AUTO 20 % (21-46); MONOCYTES PERCENT AUTO 8 % (4-13); Mean Corpuscular HGB Conc 36.5 g/dL (31.5-36.5); Mean Corpuscular Volume 96 fL (80-100); NEUTROPHILS ABSOLUTE AUTO 8.17 K/mm3 (1.96-9.15); NEUTROPHILS PERCENT AUTO 71 % (41-73); Platelet Count 441 K/mm3 (150-400); RDW Coefficient Variation 12.6 % (11.7-14.2); RDW Standard Deviation 44.3 fL (35.1-46.3); Red Blood Cell Count 3.51 M/mm3 (4.30-5.90); White Blood Cell Count 11.54 K/mm3 (4.00-11.30)
[2019-05-03 19:13] LABS: Troponin I <0.015 ng/mL (0.000-0.040)
[2019-05-03 19:43] LABS: Alanine Aminotransfer (ALT/SGP 84 U/L (12-78); Albumin, Blood 4.2 g/dL (3.4-5.0); Albumin/Globulin Ratio 1.2 (0.8-1.8); Alk Phos 56 U/L (50-136); Anion Gap 8 mmol/L (6-16); Aspartate Aminotrans (AST/SGOT 115 U/L (12-37); Bilirubin, Total 0.8 mg/dL (0.1-1.0); Blood Urea Nitrogen 16 mg/dL (8-24); Bun/Creatinine Ratio 13.6 (12.0-20.0); CO2, Blood 29 mmol/L (21-32); Calcium, Blood 8.7 mg/dL (8.5-10.1); Chloride, Blood 82 mmol/L (98-108); Creatinine, Blood 1.18 mg/dL (0.60-1.20); Globulin, Blood 3.6 g/dL (2.2-4.0); Glomerular Filtration Rate >60 (60-); Glucose, Blood 90 mg/dL (70-99); Potassium, Blood 3.5 mmol/L (3.5-5.5); Sodium, Blood 119 mmol/L (136-145); Total Protein, Blood 7.8 g/dL (6.4-8.2)
[2019-05-03] MEDS ORDERED: CITA20 PO (20:11)
[2019-05-03 20:56] LABS: Magnesium, Blood 1.5 mg/dL (1.6-2.4)
[2019-05-03 20:58] LABS: Thyroid Stimulating Hormone 36.8 uIU/mL (0.360-4.800)
--- NOTE | 2019-05-03 21:34 | NUR ---
REPORT RECEIVED FROM ED NURSE KRISTA @ [id number]
[2019-05-04 02:23] LABS: Hematocrit 31.8 % (37.0-53.0); Hemoglobin 11.5 g/dL (13.5-17.5); Mean Corpuscular HGB 35.5 pg (26.0-34.0); Mean Corpuscular HGB Conc 36.2 g/dL (31.5-36.5); Mean Corpuscular Volume 98 fL (80-100); Mean Platelet Volume 8.7 fL (9.1-12.4); Platelet Count 377 K/mm3 (150-400); RDW Coefficient Variation 12.4 % (11.7-14.2); RDW Standard Deviation 44.9 fL (35.1-46.3); Red Blood Cell Count 3.24 M/mm3 (4.30-5.90); White Blood Cell Count 9.08 K/mm3 (4.00-11.30)
[2019-05-04 02:37] LABS: International Normalized Ratio 1.08; Prothrombin Time Results 11.4 Sec (9.7-11.5)
[2019-05-04 02:44] LABS: Alanine Aminotransfer (ALT/SGP 72 U/L (12-78); Albumin, Blood 3.7 g/dL (3.4-5.0); Albumin/Globulin Ratio 1.1 (0.8-1.8); Alk Phos 49 U/L (50-136); Anion Gap 8 mmol/L (6-16); Aspartate Aminotrans (AST/SGOT 96 U/L (12-37); Bilirubin, Total 0.6 mg/dL (0.1-1.0); Blood Urea Nitrogen 16 mg/dL (8-24); Bun/Creatinine Ratio 14.2 (12.0-20.0); CO2, Blood 30 mmol/L (21-32); Calcium, Blood 8.4 mg/dL (8.5-10.1); Chloride, Blood 85 mmol/L (98-108); Creatinine, Blood 1.13 mg/dL (0.60-1.20); Globulin, Blood 3.3 g/dL (2.2-4.0); Glomerular Filtration Rate >60 (60-); Glucose, Blood 82 mg/dL (70-99); Potassium, Blood 3.3 mmol/L (3.5-5.5); Sodium, Blood 123 mmol/L (136-145); Troponin I <0.015 ng/mL (0.000-0.040)
[2019-05-04 06:37] LABS: Source, Urine Clean Catch
[2019-05-04 06:45] LABS: Bilirubin, Urine Neg (Neg); Color, Urine Yellow (P-Yellow); Glucose Qualitative, Urine Neg (Neg); Ketones, Urine Neg (Neg); Nitrite, Urine Neg (Neg); Protein, Urine 1+ (Neg)
[2019-05-04 07:21] LABS: Appearance, Urine Hazy (Clear); Blood, Urine Neg (Neg); Leukocyte Esterase, Urine 3+ (Neg); Specific Gravity, Urine 1.015 (1.003-1.022); Urobilinogen, Urine 1+ (Normal)
[2019-05-04 07:23] LABS: Red Blood Cells, Urine 0-2 /hpf (0-2)
[2019-05-04 07:24] LABS: Bacteria Mod /hpf; Mucus Mod (0-Heavy); Squamous Epithelial Cells Not Seen /hpf (Few)
[2019-05-04 07:29] LABS: U Amphetamine Screen Not Detected; U Barbituate Screen Not Detected; U Benzodiazapine Screen DETECTED; U Buprenorphine Screen Not Detected; U Cannabinoids Screen Not Detected; U Cocaine Screen Not Detected; U Methadone Screen Not Detected; U Methamphetamine Screen Not Detected; U Opiates Screen Not Detected; U Oxycodone Screen Not Detected; U Phencyclidine Screen Not Detected; U Propoxyphene Screen Not Detected
--- NOTE | 2019-05-04 08:09 | NUR ---
END OF SHIFT SUMMARY ASSUMED CARE OF PT FROM ED. PT'S NA LEVEL 119. PT GIVEN ORDERED NACL TABS PER EMAR AND NS @75MLS/HR. SODIUM LEVEL TRENDING UPWARDS. PT'S SONS IN THE ROOM UPON ADMISSION, VERY HELPFUL WITH HEALTH HISTORY, THEY STATE THEIR INTENTION TO BRING IN HIS HOME MED LIST, ONCOMING NURSE IS AWARE OF THIS. PT HAS BEEN AXO CHAMP SLOW TO RESPOND. PT HAS RESTED FOR MAJORIY OF SHIFT POST ADMISSION. PT HAS USED THE CALL LIGHT APPROPRIATELY. TAB ALARM IN PLACE DUE TO DIFFICULTIES WITH BED ALARM. PT HAS NOT ATTEMPTED TO GET OUT OF BED HE KNOWS THAT HE IS CURRENTLY TOO WEAK TO WALK PER PT REPORT. CALL LIGHT WITHIN REACH. REPORT GIVEN TO ONCOMING NURSE.
[2019-05-04 12:44] LABS: Anion Gap 7 mmol/L (6-16); Blood Urea Nitrogen 14 mg/dL (8-24); Bun/Creatinine Ratio 14.9 (12.0-20.0); CO2, Blood 30 mmol/L (21-32); Calcium, Blood 9.2 mg/dL (8.5-10.1); Chloride, Blood 85 mmol/L (98-108); Creatinine, Blood 0.94 mg/dL (0.60-1.20); Glomerular Filtration Rate >60 (60-); Glucose, Blood 95 mg/dL (70-99); Potassium, Blood 3.4 mmol/L (3.5-5.5); Sodium, Blood 122 mmol/L (136-145)
--- NOTE | 2019-05-04 13:16 | NUR ---
Telephone report given to Lai Barker at this time. The pt will be transferred to room 354 soon.
--- NOTE | 2019-05-04 18:14 | NUR ---
INITIAL [facility] CARE VISIT. PT IS 68 YEAR OLD MALE, READMITTED SINCE LAST WEEK FOR HYPONATREMIA AND WEAKNESS. PT HAS A HX OF ETOH ABUSE. HE STATES AND FAMILY CONFIRMS HE HAS NOT BEEN DRINKING SINCE HIS ADMISSION MORE THAN A WEEK AGO. THEY HAD SOME DIFFICULTY GETTING HIS RXS FILLED ON D/C LAST WEEK. MUCH OF THE HX OF EVENTS OF PAST WEEK OBTAINED FROM PT'S SISTER IN LAW, PT EVAL NOTES AND H&P/PN. CONFERENCED WITH OT AND DAUGHTER OUTSIDE OF PT'S ROOM AFTER MY VISIT ALSO. PT WAS SITTING UP IN CHAIR, SMILING, CALM, ALERT AND ORIENTED TO SELF, FAMILY, PLACE AND DATE. HE REPORTS THAT HE FEELS BETTER TODAY THAN HE HAS IN A LONG WHILE. REFERRAL RECEIVED TO DISCUSS AD/POLST AND S/S MANAGEMENT. PT DENIES PAIN, N/V, CAIN, ANXIETY OR DISTRESS. ALTHOUGH HE IS A/O SOME OF HIS STATEMENTS LEAD ME TO BELIEVE HIS JUDGEMENT AND COGNITION MAY BE IMPAIRED. HE STATED HE WAS NEARLY 69 AND DIDN'T EXPECT TO LIVE TOO MUCH LONGER BUT WANTED TO LIVE LONG HE COULD TO SPEND TIME WITH HIS FAMILY. WHEN ASKED WHAT HIS FEELINGS WERE REGARDING CPR AND HAVING CHEST COMPRESSIONS HE STATED HE DID WANT TO BE RESCUSITATED AND WANTED TO BE A FULL CODE, WHICH HE IS. HE WAS INCONSISTENT IN EXPRESSING HIS GOALS OF CARE. HE AGREED THAT HE SHOULD IDENTIFY AN ALTERNATE MEDICAL DECISION MAKER AND IS AWARE THAT HIS MEMORY AND ABILITY TO THINK AND CARE FOR HIMSELF IS GREATLY IMPAIRED AT TIMES. I SPOKE TO HIS CHILDREN ABOUT THE PT RECOMMENDATION FOR 24 HR SUPERVISION DUE TO THEIR CONCERNS FOR HIS SAFETY WHEN HE IS ALONE R/T POOR JUDGEMENT AND DECREASED COGNITION/SELF-CARE. WE DISCUSSED COMPLETING AN ADVANCED DIRECTIVE WITH HIS FAMILY TO DOCUMENT HIS SURROGATE MEDICAL DECISION MAKERS DUE TO HIS INABILITY TO MAKE DECISIONS FOR HIMSELF SOMETIMES. PT WAS AGREEABLE AND I REVIEWED THE FORM WITH PT/HIS KIDS. HE LIVES IN HIS OWN HOME WITH TWO SONS LIVING THERE ALSO. THEY WERE BOTH HOME BUT ASLEEP WHEN HE DECIDED TO "WALK TO HIS BROTHER'S" LAST FRIDAY. HIS BROTHER LIVES 14 MILES AWAY. A NEIGHBOR PICKED HIM UP AND DROVE HIM TO HIS BROTHER'S WHERE HIS SISTER IN LAW STARTED MAKING PHONE CALLS TO [employer] AND SUPPORT FOR HIS CARE. PT WAS SEEN BY SANDRA VALDEZ PT LAST FRIDAY AND IS ANTICIPATING FURTHER VISITS. I ASKED FAMILY TO CALL HH WHEN HE WAS D/C'D SO HE COULD GET BACK ON THEIR SCHEDULE. I RECOMMENDED THAT FAMILY KEEP IN CLOSE CONTACT WITH PCP FOR RX REFILLS AND WORK WITH HH TO MAXIMIZE SUPPORT AND CARE AT HOME. WITH PT'S PERMISSION I GAVE PT'S BROTHER/LEE AN UPDATE ON MY CONVERSATION WITH PT AND CHILDREN ALSO.
--- NOTE | 2019-05-04 18:57 | NUR ---
NO ACUTE CHANGES NOTED. NO CURRENT COMPLAINTS OF PAIN ORDISCOMFORT NOTED. PATIENT HAS BEEN PLESANT THIS SHIFT. WILL CONTINUE TO MONITOR FOR CHANGES.
--- NOTE | 2019-05-04 22:39 | NUR ---
PT HAD BEEN HAVING SOME DIFFICULTY VOIDING. ACCORDING TO CHARTING PT HAD NOT VOIDING SINCE 0630 THIS AM. STOOD PT UP TO HELP ASSIST WITH VOIDING AND PT WAS STILL UNABLE TO VOID. BLADDER SCAN READ 543 ML. NOTIFIED KRISTEN CARDENAS WHO ORDERED A ONE TIME STRAIGHT CATH. WHEN RETURNING WITH SUPPLIES PT USED URINAL AND VOIDED 350 ML AND WISEMAN PAD AND GOWN WERE WET WITH URINE WELL. HELD OFF ON STRAIGHT CATH AT THIS TIME. WILL CONTINUE TO MONITOR.
--- NOTE | 2019-05-05 05:03 | NUR ---
SHIFT SUMMARY PT PLEASANT AND COOPERATIVE. SAT UP IN CHAIR AND VISITED WITH SONS AND FAMILY UNTIL LATE IN THE EVENING. SOON AFTER PT WENT TO BED. PT HAD DIFFICULT TIME VOIDING THIS EVENING BUT WAS FINALLY ABLE TO VOID. SEE PREVIOUS NOTE. PT ALERT AND ORIENTED BUT VERY FORGETFUL AND IMPULSIVE. FREQUENTLY SET OFF CHAIR ALARM WHEN IN CHAIR. HAS NOT TRIED TO GET OOB SINCE PT HAS BEEN IN BED. PT HAS DENIED ANY PAIN. WHEN ASKED PT STATES HE FEELS, "GREAT". NO ACUTE CHANGES THIS SHIFT. VSS. WILL CONTINUE TO MONITOR AND REPORT TO DAY RN.
[2019-05-05 05:55] LABS: BASOPHILS ABSOLUTE AUTO 0.05 K/mm3 (0.00-0.23); BASOPHILS PERCENT AUTO 1 % (0-2); EOSINOPHILS ABSOLUTE AUTO 0.09 K/mm3 (0.00-0.68); EOSINOPHILS PERCENT AUTO 1 % (0-6); Hematocrit 33.7 % (37.0-53.0); Hemoglobin 12.1 g/dL (13.5-17.5); IMMATURE GRAN ABSOLUTE AUTO 0.03 K/mm3 (0.00-0.10); IMMATURE GRAN PERCENT AUTO 0 % (0-1); LYMPHOCYTES ABSOLUTE AUTO 1.73 K/mm3 (0.84-5.20); LYMPHOCYTES PERCENT AUTO 22 % (21-46); MONOCYTES ABSOLUTE AUTO 0.93 K/mm3 (0.16-1.47); MONOCYTES PERCENT AUTO 12 % (4-13); Mean Corpuscular HGB 34.4 pg (26.0-34.0); Mean Corpuscular HGB Conc 35.9 g/dL (31.5-36.5); Mean Corpuscular Volume 96 fL (80-100); Mean Platelet Volume 8.7 fL (9.1-12.4); NEUTROPHILS ABSOLUTE AUTO 4.95 K/mm3 (1.96-9.15); NEUTROPHILS PERCENT AUTO 64 % (41-73); Platelet Count 406 K/mm3 (150-400); RDW Coefficient Variation 12.2 % (11.7-14.2); RDW Standard Deviation 42.6 fL (35.1-46.3); Red Blood Cell Count 3.52 M/mm3 (4.30-5.90); White Blood Cell Count 7.78 K/mm3 (4.00-11.30)
[2019-05-05 06:24] LABS: Albumin, Blood 3.7 g/dL (3.4-5.0); Anion Gap 8 mmol/L (6-16); Blood Urea Nitrogen 15 mg/dL (8-24); Bun/Creatinine Ratio 17.9 (12.0-20.0); CO2, Blood 28 mmol/L (21-32); Calcium, Blood 8.6 mg/dL (8.5-10.1); Chloride, Blood 87 mmol/L (98-108); Creatinine, Blood 0.84 mg/dL (0.60-1.20); Glomerular Filtration Rate >60 (60-); Glucose, Blood 87 mg/dL (70-99); Phosphorus, Blood 3.3 mg/dL (2.5-4.9); Potassium, Blood 3.3 mmol/L (3.5-5.5); Sodium, Blood 123 mmol/L (136-145)
[2019-05-05] MEDS ORDERED: SODCHL1 PO (11:37)
--- NOTE | 2019-05-05 14:20 | NUR ---
PT. DISCHARGED HOME WITH SON, HOME HEALTH TO FOLLOW.
== END 2019-05-05 15:17 | disposition home health service (06) | DRG 640 ==
LOC: ER 18:09 → PCU 20:11 → MEDS 05-04 14:44 → ENPENDDIS 05-05 09:08 → MEDS 05-05 15:17
PROVIDERS: Emergency Medicine; Internal Medicine; Nurse Practitioner Acute Care; ADMIT Hospitalist
DX: E87.1 Hypo-osmolality and hyponatremia (principal); I21.A1 Myocardial infarction type 2; F10.27 Alcohol dependence with alcohol-induced persisting dementia; F41.1 Generalized anxiety disorder; I25.10 Atherosclerotic heart disease of native coronary artery without angina pectoris; F17.210 Nicotine dependence, cigarettes, uncomplicated; D64.9 Anemia, unspecified; E87.6 Hypokalemia; T50.2X5A Adverse effect of carbonic-anhydrase inhibitors, benzothiadiazides and other diuretics, initial encounter; Y92.9 Unspecified place or not applicable; D72.829 Elevated white blood cell count, unspecified; E86.1 Hypovolemia
CPT/HCPCS: 36415; 80048; 80053; 80069; 81001; 82550; 83735; 83880; 84443; 84484; 85025; 85027; 85610; 87086; 93005; 93010; 97110; 97116; 97162; 97166; 97530; 97535; 99285-25; G0480; G0515; J1650; J7030

== ENCOUNTER 2019-05-23 23:40 | Emergency (ER) | payer MEDICARE, BC ==
[~2019-05-23] VITALS: Ht 175.3 cm; Wt 65.8 kg
[~2019-05-23 23:40] MED LIST changes: +CITA20 PO
== END 2019-05-24 00:30 | disposition home or self-care (01) ==
LOC: ER 23:40
DX: F03.90 Unspecified dementia, unspecified severity, without behavioral disturbance, psychotic disturbance, mood disturbance, and anxiety (principal); Z79.899 Other long term (current) drug therapy; Z87.891 Personal history of nicotine dependence
CPT/HCPCS: 99283

== ENCOUNTER → 2025-02-23 | Outpatient (CLI) | payer MEDICARE, BC ==
[~2025-02-23] MED LIST changes: +BUSPIRONE HCL10 M6 PO; +DONEPEZIL HCL10 M1 PO; +LOSARTAN POTASS25 M2 PO; +Potassium Chlo20 ME1 PO
== END ==
LOC: LAB 17:48 → LAB SHORT 17:48
DX: E87.1 Hypo-osmolality and hyponatremia (principal)
CPT/HCPCS: 83935